=== PATIENT | female | born 1980 | race Caucasian/White ===

== ENCOUNTER 2020-08-11 09:24 | Outpatient (CLI) | payer BC ==
[2020-08-11 20:43] LABS: SARS-CoV-2 PCR by NAA Not Detected (NotDetected)
== END 2020-08-11 09:25 | disposition home or self-care (01) ==
LOC: CSHLAB 09:24
PROVIDERS: ATTEND Obstetrics & Gynecology
DX: Z20.822 Contact with and (suspected) exposure to COVID-19 (principal)
CPT/HCPCS: 87635; U0003; U0005